=== PATIENT | male | born 1980 | race Caucasian/White ===

== ENCOUNTER 2024-03-21 19:23 | Emergency (ER) | payer SELFPAY ==
[~2024-03-21] VITALS: Ht 185.4 cm; Wt 102.3 kg
[2024-03-21 19:26] VITALS: BP 166/99; TEMP 98.3
[2024-03-21] MEDS ORDERED: Lidocaine 1% w EPI (1:100,000) 20 ML Multi-Dose VIAL SQ ONE (19:45)
[2024-03-21] MEDS ORDERED: AMOXICILLIN 8751 TAB PO (21:24)
[2024-03-21] MEDS ORDERED: NAPROSYN500 MG PO (21:24)
[2024-03-21] MEDS ORDERED: BACITRACIN TOPIC1 TU TOP (21:26)
[2024-03-21 21:43] VITALS: PULSE 110
[2024-03-21] MEDS ORDERED: Amoxicillin/Clavulanate K+ 875/125 MG TAB PO ONE (21:45)
[2024-03-21] MEDS ORDERED: Bacitracin Topical Oint 30 GM TUBE TOP ONE (21:45)
== END 2024-03-21 21:53 | disposition home or self-care (01) ==
LOC: COL.ER 19:23
DX: S81.811A Laceration without foreign body, right lower leg, initial encounter (principal); F17.200 Nicotine dependence, unspecified, uncomplicated; Z23 Encounter for immunization; V86.56XA Driver of dirt bike or motor/cross bike injured in nontraffic accident, initial encounter